=== PATIENT | female | born 1960 | race Caucasian/White ===

== ENCOUNTER → 2018-07-26 | Outpatient (REF) | payer BC ==
[2018-08-02 10:16] LABS: ASPERGILLUS FUMIGATUS AB Negative (Negative); AUREOBASIDIUM PULLULANS Negative (Negative); MICROPOLYSPORA FAENI AB Negative (Negative); PIGEON SERUM AB Negative (Negative); THERMOACTINOMYCES SACCHARI Negative (Negative); THERMOACTINOMYCES VULGARIS Negative (Negative)
== END ==
LOC: M LAB REF 17:27
DX: J44.9 Chronic obstructive pulmonary disease, unspecified (principal)
CPT/HCPCS: 86606

== ENCOUNTER → 2019-07-26 | Outpatient (CLI) | payer BC ==
--- NOTE | 2019-07-26 10:48 | REP ---
Clinical: Lung screening. History smoking. Comparison: 07/19/2018 Technique: Axial low-dose noncontrast images from the thoracic inlet to the upper abdomen using lung screening technique. Findings: The lung villalpando are well-aerated. Previously identified 3 mm non solid ground-glass density in the basilar right upper lobe has resolved and likely represented a small focus of atelectasis. No consolidation, significant nodule or mass lesion is appreciated. No pleural effusion/reaction or pneumothorax. Tracheobronchial tree is patent. Mediastinum demonstrates mild atherosclerotic changes of the coronary arteries without cardiomegaly. Impression: Lung-RADS category I. No nodule or suspicious abnormality. Management recommendations include annual low-dose CT evaluation. Electronically Signed by Telly Morales MD 07/26/2019 10:39 A
== END ==
LOC: M RAD 09:41
PROVIDERS: ATTEND Internal Medicine Pulmonary Disease
DX: Z12.2 Encounter for screening for malignant neoplasm of respiratory organs (principal); F17.218 Nicotine dependence, cigarettes, with other nicotine-induced disorders

== ENCOUNTER → 2020-09-28 | Outpatient (CLI) | payer BC ==
--- NOTE | 2020-09-29 05:08 | REP ---
INDICATION: NICOTINE DEPENDENCE COMPARISON: 07/26/2019, 07/19/2018 TECHNIQUE: Axial noncontrast images from the thoracic inlet to the upper abdomen using low-dose lung screening technique (LDCT). FINDINGS: Mild emphysematous changes are appreciated. No consolidation or suspicious nodule/mass lesion. No effusion. No pneumothorax. Tracheobronchial tree is patent. IMPRESSION: 1. Mild emphysematous changes. 2. Lung-RADS category 1. No suspicious abnormalities are appreciated. Management recommendations include annual low-dose CT surveillance. <Electronically signed by Telly Morales > 09/29/20 [id number]
== END ==
LOC: M RAD 16:49
PROVIDERS: ATTEND Internal Medicine Pulmonary Disease
DX: Z12.2 Encounter for screening for malignant neoplasm of respiratory organs (principal); F17.218 Nicotine dependence, cigarettes, with other nicotine-induced disorders; J43.9 Emphysema, unspecified

== ENCOUNTER → 2021-10-11 | Outpatient (CLI) | payer BC ==
--- NOTE | 2021-10-12 09:16 | REP ---
INDICATION: SMOKER COMPARISON: 09/28/2020, 07/19/2018 TECHNIQUE: Axial noncontrast images from the thoracic inlet to the upper abdomen using low-dose lung screening technique (LDCT). FINDINGS: Bilateral lung villalpando are relatively well aerated and essentially clear. Small calcified 2 mm densities and 1-2 mm noncalcified densities are again appreciated and suggest prior granulomatous changes. No acute consolidation, suspicious nodule, or mass. No effusion. No pneumothorax. Tracheobronchial tree is patent. IMPRESSION: Lung-RADS category 1. Management recommendations include annual low-dose CT surveillance. <Electronically signed by Telly Morales > 10/12/21 0904
== END ==
LOC: M RAD 17:13
PROVIDERS: ATTEND Internal Medicine Pulmonary Disease
DX: F17.218 Nicotine dependence, cigarettes, with other nicotine-induced disorders (principal)

== ENCOUNTER → 2022-10-31 | Outpatient (CLI) | payer BC | LOC: M RAD 16:53 | PROVIDERS: ATTEND Internal Medicine Pulmonary Disease | DX: Z12.2 Encounter for screening for malignant neoplasm of respiratory organs (principal); F17.218 Nicotine dependence, cigarettes, with other nicotine-induced disorders; J84.9 Interstitial pulmonary disease, unspecified ==

== ENCOUNTER → 2024-01-01 | Outpatient (CLI) | payer BC | LOC: M RAD 09:34 | PROVIDERS: ATTEND Internal Medicine Pulmonary Disease | DX: Z12.2 Encounter for screening for malignant neoplasm of respiratory organs (principal); F17.218 Nicotine dependence, cigarettes, with other nicotine-induced disorders; J43.9 Emphysema, unspecified ==

== ENCOUNTER → 2025-01-29 | Outpatient (CLI) | payer BC | LOC: M RAD 07:30 | PROVIDERS: ATTEND Internal Medicine Pulmonary Disease | DX: F17.218 Nicotine dependence, cigarettes, with other nicotine-induced disorders (principal); J43.9 Emphysema, unspecified ==